=== PATIENT | female | born 1980 | race African-American/Black ===

== ENCOUNTER 2018-12-20 14:07 | Outpatient (CLI) | payer OTHER ==
--- NOTE | 2018-12-20 15:30 | ULT ---
LIMITED OB FOLLOWUP: HISTORY: Third trimester followup. Small for gestational age. COMPARISON: Study from the [facility] from 11/30/2018. TECHNIQUE: Sagittal and transverse imaging was performed of the gravid uterus. Doppler imaging of the umbilical artery was performed. FINDINGS: A single intrauterine gestation with a vertex presentation. Anterior placenta. Current study is not tailored to assess for the presence or absence of placenta previa. BIOMETRY: BPD: 8.42 cm (33 weeks 6 days). HEAD CIRCUMFERENCE: 30.58 cm (34 weeks 0 days). ABDOMINAL CIRCUMFERENCE: 28.79 cm (32 weeks 6 days). FEMUR LENGTH: 6.55 cm (33 weeks 5 days). AVERAGE AGE BY SONOGRAPHY: 33 weeks 4 days. ESTIMATED DATE OF DELIVERY: 02/03/2019. Currently, the estimated weight is 2166 g, plus/minus 321 g. Previously, the average age by so nography was 31 weeks 1 day. The estimated weight was 1696 g, plus or minus 254 g. Currently, the estimated weight is in the 8th percentile. There are heart tones with a rate of 145 beats per minute. Amniotic fluid index is 3.4. UMBILICAL ARTERY DOPPLER: At the placenta, the peak systolic velocity is 52.8 cm per second, and the end-diastolic velocity is 23.0 cm per second. The S/D ratio is 2.3. Resistive index is 0.56. In the mid portion, the peak systolic velocity is 76.4 cm per second, and the end-diastolic velocity is 32.0 cm per second. The S/D ratio is 2.39. Resistive index is 0.58. At the fetus, the peak systolic velocity is 59.5 cm per second, and the end-diastolic velocity is 18. 2 cm per second. The S/D ratio is 3.27. Resistive index is 0.69. IMPRESSION: 1. Marked oligohydramnios. 2. Single intrauterine gestation with average by sonography of 33 weeks 4 days. Estimated didier ght is in the 8th percentile. 3. Umbilical artery Doppler as above. The results of the study were discussed with Dr. Dutta on 12/20/2018 at 2:36 p.m. CODE CR POS: [facility]
== END 2018-12-20 14:08 | disposition home or self-care (01) ==
LOC: SCSULT 14:07
PROVIDERS: ATTEND Family Medicine
DX: O09.893 Supervision of other high risk pregnancies, third trimester (principal); O41.03X0 Oligohydramnios, third trimester, not applicable or unspecified; Z3A.33 33 weeks gestation of pregnancy
CPT/HCPCS: 76700; 76816

== ENCOUNTER 2019-01-03 05:30 | Inpatient (IN) | payer OTHER ==
[2019-01-03 06:20] VITALS: BMI 51.2
[2019-01-03] MEDS ORDERED: Diphenoxylate HCl/Atropine Tablet PO PRN (06:45)
[2019-01-03] MEDS ORDERED: Carboprost 250 MCG/ML AMP IM PRN (06:45)
[2019-01-03] MEDS ORDERED: Ondansetron PF 4 MG/2 ML Vial IVP PRN ×3 (06:45→15:26)
[2019-01-03] MEDS ORDERED: Misoprostol 200 MCG TAB PR PRN (06:45)
[2019-01-03] MEDS ORDERED: Ibuprofen 800 MG TAB PO PRN (06:45)
[2019-01-03] MEDS ORDERED: NS / Oxytocin 40 units/1000ml 1,000 ML IV PRN (06:45)
[2019-01-03] MEDS ORDERED: Lidocaine 1% (PF) 30 ML VIAL SC PRN (06:45)
[2019-01-03] MEDS ORDERED: Butorphanol Tartrate 1 MG/ML VIAL SLOW IVP PRN (06:45)
[2019-01-03] MEDS ORDERED: NS w/ Oxytocin 10 units 500 ML IV SCH ×2 (06:45)
[2019-01-03] MEDS ORDERED: HYDROcodone/Acetaminophen 5/325 mg Tablet PO PRN ×3 (06:45→15:26)
[2019-01-03] MEDS: Lactated Ringer's 1,000 ML IV SCH ×2 (06:55→10:13)
[2019-01-03 07:07] LABS: Hemoglobin 12.1 g/dL (12.0-16.0); Mean Corpuscular HGB CONC 32.2 g/dL (32.0-36.0); Mean Corpuscular Hemoglobin 26.9 pg (27.0-31.0); Mean Corpuscular Volume 83.7 fL (78.0-98.0); Platelet Count 295 thou/uL (130-400); RBC Distribution Width 14.4 % (11.5-14.5)
[2019-01-03 07:52] LABS: HBSAg Index 0.22 S/CO (0-0.99); Hep B Surf Ag Non-Reactive S/CO (NonReactive); Syphilis Antibody Nonreactive (Nonreactive); Syphilis Antibody Index 0.04 S/CO (<1.00 Non-Reactive)
[2019-01-03] MEDS ORDERED: Fentanyl 4 mcg/Bup 0.1% Cadd 100 ML ONE (09:31)
[2019-01-03] MEDS ORDERED: Lidocaine 1.5%/Epinephrine 1:200,000 5 ML AMPUL IJ ONE (09:38)
[2019-01-03] MEDS ORDERED: ePHEDrine/0.9% NaCl/PF SYRINGE 50 mg/10 ml SLOW IVP PRN (10:26)
[2019-01-03] MEDS ORDERED: Promethazine HCl 25 MG/ML VIAL IM PRN (10:26)
[2019-01-03] MEDS ORDERED: Naloxone HCl 0.4 mg/ml Vial IVP PRN ×2 (10:26)
[2019-01-03] MEDS ORDERED: Lactated Ringer's 500 ML IV PRN (10:26)
[2019-01-03] MEDS ORDERED: Acetaminophen 325 MG TAB PO PRN (10:26)
[2019-01-03] MEDS ORDERED: diphenhydrAMINE 50 MG/ML VIAL IVP PRN (10:26)
[2019-01-03] MEDS ORDERED: Eucerin (Mineral Oil/Petrolatum,White) 30 gm Jar TOP PRN (10:26)
[2019-01-03] MEDS ORDERED: Communication Order-Pharmacy FS SCH (10:30)
[2019-01-03] MEDS ORDERED: Fentanyl 4 mcg/Bupivacaine 0.1% Cassette 100 ML EPIDURAL SCH (10:30)
[2019-01-03] MEDS ORDERED: Bupivacaine/Epinephrine 0.25% 30 ML VIAL ONE (11:11)
[2019-01-03] MEDS ORDERED: Milk Of Magnesia 30 ML UDCUP PO PRN (15:26)
[2019-01-03] MEDS ORDERED: Bisacodyl 10 MG SUPP PR PRN (15:26)
[2019-01-03] MEDS ORDERED: Preparation H Ointment 28 GM TUBE PR PRN (15:26)
[2019-01-03] MEDS ORDERED: NS / Oxytocin 40 units/1000ml 1,000 ML IV SCH (15:26)
[2019-01-03] MEDS ORDERED: diphenhydrAMINE 25 MG CAP PO PRN (15:26)
[2019-01-03] MEDS: Ferrous Sulfate 325 MG TAB PO SCH (16:56)
[2019-01-03] MEDS: Docusate Calcium (SURFAK) 240 MG CAP PO SCH (21:58)
[2019-01-03] MEDS: Ibuprofen 800 MG TAB PO SCH (21:58)
[2019-01-04] MEDS: Ibuprofen 800 MG TAB PO SCH ×3 (06:07→22:08)
[2019-01-04 08:02] LABS: Hemoglobin 12.3 g/dL (12.0-16.0); Mean Corpuscular HGB CONC 32.2 g/dL (32.0-36.0); Mean Corpuscular Hemoglobin 26.5 pg (27.0-31.0); Mean Corpuscular Volume 82.4 fL (78.0-98.0); Mean Platelet Volume 9.2 fL (7.4-10.4); Platelet Count 271 thou/uL (130-400); RBC Distribution Width 14.3 % (11.5-14.5); Red Blood Cell (RBC) Count 4.65 mill/uL (4.20-5.40); White Blood Cell (WBC) Count 9.3 thou/uL (4.8-10.8)
[2019-01-04] MEDS: Prenatal Vitamin 1 TAB PO SCH (09:08)
[2019-01-04] MEDS: Ferrous Sulfate 325 MG TAB PO SCH ×2 (09:08→18:09)
[2019-01-04] MEDS: Docusate Calcium (SURFAK) 240 MG CAP PO SCH ×2 (09:08→22:08)
[2019-01-04] MEDS ORDERED: cloNIDine 0.1 MG TAB PO SCH (12:15)
[2019-01-04] MEDS ORDERED: cloNIDine 0.1 MG TAB PO PRN (12:18)
[2019-01-05] MEDS: Ibuprofen 800 MG TAB PO SCH ×2 (06:23→14:19)
[2019-01-05] MEDS: Ferrous Sulfate 325 MG TAB PO SCH ×2 (08:41→17:20)
[2019-01-05] MEDS: Docusate Calcium (SURFAK) 240 MG CAP PO SCH (08:41)
[2019-01-05] MEDS: Prenatal Vitamin 1 TAB PO SCH (08:41)
[2019-01-05 13:09] VITALS: BP 135/71; TEMP 98.3
== END 2019-01-05 17:40 | disposition home or self-care (01) | DRG 806 ==
LOC: L&D 05:31 → 3SW 16:48
PROVIDERS: ADMIT Family Medicine; ATTEND Family Medicine
PROC: 10E0XZZ Delivery of Products of Conception, External Approach (ICD-10-PCS; principal; 2019-01-03)
PROC: 10907ZC Drainage of Amniotic Fluid, Therapeutic from Products of Conception, Via Natural or Artificial Opening (ICD-10-PCS; 2019-01-03)
PROC: 3E033VJ Introduction of Other Hormone into Peripheral Vein, Percutaneous Approach (ICD-10-PCS; 2019-01-03)
DX: O10.02 Pre-existing essential hypertension complicating childbirth (principal); O41.03X0 Oligohydramnios, third trimester, not applicable or unspecified; Z37.0 Single live birth; Z3A.37 37 weeks gestation of pregnancy; O99.214 Obesity complicating childbirth; E66.01 Morbid (severe) obesity due to excess calories
CPT/HCPCS: 36415; 51702; 85027; 86780; 86850; 86900; 86901; 87340; 88307; J3490